=== PATIENT | male | born 2000 | race Caucasian/White ===

== ENCOUNTER 2020-11-08 15:29 | Outpatient (CLI) | payer OTHER ==
--- NOTE | 2020-11-08 17:06 | XRAY Report ---
PROCEDURE: Ankle 3 View RT INDICATIONS: RIGHT LATERAL ANKLE INVERSION INJURY TECHNIQUE: 3 views of the ankle were acquired. COMPARISON: None. FINDINGS: Bones: No acute fractures or dislocations. Ankle mortise is normally aligned. No suspicious bony l esions. Soft tissues: Soft tissue edema is seen in the lateral malleolus. IMPRESSION: No acute osseous abnormality. If there is clinical concern or persistent symptoms, addit ional imaging such as repeat radiographs or advanced imaging (e.g. CT, MRI) may be helpful for furthe r evaluation. Reviewed by: Arsh Tobias MD on 11/08/2020 5:05 PM PDT Approved by: Arsh Tobias MD on 11/08/2020 5:05 PM PDT Station ID: [id number]
== END 2020-11-08 23:59 | disposition home or self-care (01) ==
LOC: DI.N 15:29
PROVIDERS: ATTEND Physician Assistant Medical
DX: S93.491A Sprain of other ligament of right ankle, initial encounter (principal)

== ENCOUNTER 2021-11-14 08:00 | Outpatient (CLI) | payer SELFPAY ==
[2021-11-14 23:38] LABS: CHLAMYDIA TRACHOMATIS DNA NEGATIVE (NEGATIVE); NEISSERIA GONORRHOEAE DNA NEGATIVE (NEGATIVE)
== END 2021-11-14 23:59 | disposition home or self-care (01) ==
LOC: LAB.N 08:00
PROVIDERS: ATTEND Registered Nurse
DX: R36.9 Urethral discharge, unspecified (principal)
CPT/HCPCS: 87077; 87086; 87491; 87591; 87661

== ENCOUNTER 2021-12-06 08:00 | Outpatient (CLI) | payer SELFPAY | END 2021-12-06 23:59 | disposition home or self-care (01) | LOC: LAB.N 08:00 | PROVIDERS: ATTEND Physician Assistant | DX: R31.9 Hematuria, unspecified (principal) | CPT/HCPCS: 87077; 87086; 87181 ==

== ENCOUNTER 2023-10-01 14:10 | Outpatient (CLI) | payer BC ==
--- NOTE | 2023-10-02 14:26 | XRAY Report ---
PROCEDURE: Toe(s) 2+V RT INDICATIONS: CONTUSION OF RIGHT GREAT TOE WITH NAIL DAMAGE TECHNIQUE: 3 views of the first toe(s) acquired. COMPARISON: None. FINDINGS: Bones: No dislocations. No suspicious bony lesions. There is a medial superior articular margin co rner fracture, intra-articular, minimally displaced involving the distal phalanx of the great toe. Soft tissues: No suspicious soft tissue densities. IMPRESSION: Articular margin fracture upper medial aspect of the base of the first distal phalanx. Reviewed by: Chava Garcia MD on 10/02/2023 2:24 PM PDT Approved by: Chava Garcia MD on 10/02/2023 2:24 PM PDT Station ID: [id number]
== END 2023-10-01 23:59 | disposition home or self-care (01) ==
LOC: DI.N 14:10
PROVIDERS: ATTEND Nurse Practitioner
DX: S92.411A Displaced fracture of proximal phalanx of right great toe, initial encounter for closed fracture (principal)